=== PATIENT | male | born 1970 | race Caucasian/White ===

== ENCOUNTER 2022-04-21 23:02 | Emergency (ER) | payer OTHER ==
[~2022-04-21 23:02] MED LIST: ASPIRIN EC81 MG PO; HYDROCODON-ACE1 EAC4 PO; KEFLEX250 MG PO; METFORMIN HCL500 MG PO; NAPROXEN500 MG PO; PEPCID AC20 MG PO
[2022-04-21 23:36] LABS: BASOPHIL 0.7 % (0-2); EOSINOPHIL 2.7 % (0-5); HCT 40.5 % (42.0-52.0); HGB 14.7 g/dl (13.2-18.0); LYMPHOCYTE 39.2 % (15-48); MCH 31.1 pg (25.0-31.0); MCHC 36.3 g/dL (32.0-36.0); MCV 85.6 fL (78.0-100.0); MONOCYTE 9.7 % (0-12); NEUTROPHIL 47.3 % (41-80); NRBC 0; PLT 202 K/uL (150-400); RBC 4.73 M/uL (4.70-6.00); RDW 11.7 % (11.5-14.0); WBC 8.1 K/uL (4.0-10.5)
[2022-04-21 23:50] LABS: BUN/CREAT RATIO (CALC) 23.4 RATIO; CREATININE 0.77 mg/dL (0.67-1.17); POTASSIUM 4.3 mmol/L (3.5-5.1)
[2022-04-22] MEDS ORDERED: CYCLOBENZAPRINE10 MG PO (01:54)
[2022-04-22] MEDS ORDERED: NORCO 5-325 TA1 EACH PO (01:54)
[2022-04-22 02:00] LABS: CORONAVIRUS 2019 SARS-COV-2 NEGATIVE (NEGATIVE); INFLUENZA A NAA NEGATIVE (NEGATIVE)
== END 2022-04-22 02:10 | disposition home or self-care (01) ==
LOC: FER 23:02
PROVIDERS: Internal Medicine
DX: R07.89 Other chest pain (principal); E11.65 Type 2 diabetes mellitus with hyperglycemia; I10 Essential (primary) hypertension; E78.5 Hyperlipidemia, unspecified; Z79.4 Long term (current) use of insulin; Z79.84 Long term (current) use of oral hypoglycemic drugs; Z79.899 Other long term (current) drug therapy; Z20.822 Contact with and (suspected) exposure to COVID-19
CPT/HCPCS: 36415; 71045; 80048; 84145; 84484; 85025; 93005; J7030; U0002

== ENCOUNTER 2022-07-30 14:17 | Emergency (ER) | payer OTHER ==
[~2022-07-30 14:17] MED LIST changes: +CYCLOBENZAPRINE10 MG PO; +NORCO 5-325 TA1 EACH PO
[2022-07-30] MEDS ORDERED: MEDROL 4MG DOSEP4 MG PO (15:43)
[2022-07-30] MEDS ORDERED: CYCLOBENZAPRINE10 MG PO (15:43)
== END 2022-07-30 15:45 | disposition home or self-care (01) ==
LOC: FER 14:17
DX: M79.621 Pain in right upper arm (principal)
CPT/HCPCS: 99283